=== PATIENT | female | born 1980 | race Caucasian/White ===

== ENCOUNTER 2018-06-07 06:24 | Day surgery (SDC) | payer SELFPAY ==
[2018-06-07] MEDS ORDERED: GENTAMICIN SO4 80 MG/2 ML VIAL ONE (07:08)
[2018-06-07] MEDS ORDERED: ceFAZolin SODIUM 1 GM VIAL ONE ×2 (07:08→07:13)
[2018-06-07] MEDS ORDERED: EPINEPHrine/PF 1 MG/1 ML (1:1,000) AMPULE ONE (07:09)
[2018-06-07] MEDS ORDERED: BACITRACIN 15 GM TUBE TOPICAL OINTMENT ONE (07:09)
[2018-06-07] MEDS ORDERED: LIDOCAINE HCL 1%, 10 MG/ML (20ML VIAL) ONE (07:09)
[2018-06-07] MEDS ORDERED: ROCURONIUM BROMIDE 50 MG/5 ML VIAL ONE ×4 (07:12→13:47)
[2018-06-07] MEDS ORDERED: PROPOFOL 20 ML ONE (07:12)
[2018-06-07] MEDS ORDERED: fentaNYL CITRATE 250 MCG/5 ML VIAL ONE ×2 (07:12→10:08)
[2018-06-07] MEDS ORDERED: MIDAZOLAM HCL 2 MG/2 ML SINGLE DOSE VIAL ONE (07:12)
[2018-06-07] MEDS ORDERED: DEXAMETHASONE SOD PHOSPHATE 4 MG/1 ML VIAL ONE (07:13)
[2018-06-07] MEDS ORDERED: ONDANSETRON 4 MG/2 ML VIAL ONE ×2 (07:13→16:10)
[2018-06-07] MEDS ORDERED: SUCCINYLCHOLINE CHLORIDE 200 MG/10 ML VIAL ONE (07:13)
[2018-06-07] MEDS ORDERED: ePHEDrine SULFATE 50 MG/1 ML AMPULE ONE (07:15)
[2018-06-07 07:16] VITALS: BMI 25.9
[2018-06-07] MEDS ORDERED: HEPARIN NA (PORCINE) 5,000 UNITS/ML 1ML VIAL ONE (07:17)
[2018-06-07] MEDS ORDERED: LIDOCAINE HCL 2% 100 MG/5 ML DISP.SYRIN ONE (07:22)
[2018-06-07] MEDS ORDERED: PROMETHAZINE HCL 25 MG/1 ML VIAL IVPUSH PRN (07:53)
[2018-06-07] MEDS ORDERED: oxyCODONE HCL 5 MG TABLET PO PRN ×2 (07:53→15:47)
[2018-06-07] MEDS ORDERED: BUPIVACAINE HCL/PF 2.5 MG/ML - 30 ML VIAL IJ ONE (08:31)
[2018-06-07] MEDS ORDERED: BUPIVACAINE LIPOSOME/PF (EXPAREL) 266 MG/20 ML VIAL ONE (08:32)
[2018-06-07] MEDS ORDERED: HYDROmorphone HCL/PF 1 MG/ML AMP ONE ×2 (13:47→14:45)
[2018-06-07] MEDS ORDERED: HYDROCORTISONE SOD SUCCINATE 2 ML ONE (13:47)
[2018-06-07] MEDS ORDERED: NEOSTIGMINE METHYLSULFATE 0.5 MG/ML - 10 ML MDV ONE (14:48)
[2018-06-07] MEDS ORDERED: NITROGLYCERIN 2% OINTMENT - 1GM PACKET TD ONE (14:50)
[2018-06-07] MEDS ORDERED: MORPHINE SULFATE 2 MG/ML VIAL IVPUSH PRN (15:52)
[2018-06-07] MEDS ORDERED: PROMETHAZINE HCL 25 MG/1 ML VIAL IVPB PRN (16:00)
[2018-06-07] MEDS ORDERED: LACTATED RINGERS SOLUTION 1,000 ML IV SCH (16:00)
[2018-06-07] MEDS: ONDANSETRON 4 MG/2 ML VIAL IVPB PRN ×2 (16:13→21:50)
[2018-06-07] MEDS: oxyCODONE HCL 5 MG TABLET PO PRN (18:57)
[2018-06-07] MEDS ORDERED: morphine CARPU-JECT 2 MG/1 ML DISP.SYRIN IVPUSH PRN ×2 (19:21→22:57)
[2018-06-07] MEDS: CEFAZOLIN 1 GM/D5W 1 GM/50 ML BAG IVPB SCH (20:31)
[2018-06-07] MEDS ORDERED: CEFAZOLIN 1 GM/D5W 50 ML IVPB SCH (21:00)
[2018-06-08] MEDS: CEFAZOLIN 1 GM/D5W 1 GM/50 ML BAG IVPB SCH (02:11)
[2018-06-08] MEDS: ONDANSETRON 4 MG/2 ML VIAL IVPB PRN ×2 (02:12→08:50)
[2018-06-08] MEDS: oxyCODONE HCL 5 MG TABLET PO PRN (06:15)
--- NOTE | 2018-06-08 07:31 | PN ---
Progress Note (short form) - Note Progress Note: healing well, VSS AF still with NV, but otherwise pain well controled CODY thin and functioning All tissues viable, no collections Ambulating OK for d/c
[2018-06-08] MEDS: HEPARIN NA (PORCINE) 5,000 UNITS/ML 1ML VIAL SQ SCH ×2 (07:49→07:51)
--- NOTE | 2018-06-08 08:52 | PN ---
Progress Note, Physician Chief Complaint: day 1 s/p abdominoplasty,breast augmentation - Current Medication List Current Medications: Active Medications Fentanyl (Sublimaze Injection -) 25 mcg IVPUSH [id number] PRN PRN Reason: PAIN-PACU ORDER X 4 DOSES ONLY Fentanyl (Sublimaze Injection -) 25 mcg IVPUSH [id number] PRN PRN Reason: PAIN-PACU ORDER X 4 DOSES ONLY Last Admin: 06/07/18 16:12 Dose: 25 mcg Heparin Sodium (Porcine) (Heparin -) 5,000 unit SQ BID ZOË Last Admin: 06/08/18 07:51 Dose: 5,000 unit Lactated Ringer's (Lactated Ringers Solution) 1,000 mls @ 75 mls/hr IV ASDIR ZOË Last Admin: 06/07/18 17:00 Dose: 75 mls/hr Cefazolin Sodium (Ancef 1 Gm Premixed Ivpb -) 1 gram in 50 mls @ 100 mls/hr IVPB Q6H-IV ZOË Last Admin: 06/08/18 08:29 Dose: 100 mls/hr Morphine Sulfate (Morphine Injection -) 2 mg IVPUSH Q4H PRN PRN Reason: PAIN 4-6 Last Admin: 06/08/18 00:10 Dose: 2 mg Ondansetron HCl (Zofran Injection) 4 mg IVPB Q4H PRN PRN Reason: NAUSEA Last Admin: 06/08/18 02:12 Dose: 4 mg Oxycodone HCl (Roxicodone -) 5 mg PO Q4H PRN PRN Reason: PAIN LEVEL 1-3 Oxycodone HCl (Roxicodone -) 10 mg PO Q4H PRN PRN Reason: PAIN LEVEL 7-10 Last Admin: 06/08/18 06:15 Dose: 10 mg Promethazine HCl (Phenergan Injection -) 12.5 mg IVPB Q6H PRN PRN Reason: NAUSEA-FOR RESCUE AFTER 15 MIN - Objective Vital Signs: Vital Signs Temperature 98.6 F 06/08/18 06:53 Pulse Rate 84 06/08/18 06:53 Respiratory Rate 18 06/08/18 07:56 Blood Pressure 113/57 L 06/08/18 06:53 O2 Sat by Pulse Oximetry (%) 100 06/08/18 07:56 Assessment/Plan Pt has c/o pain from surgery. Will add one time dose of ofirmev for now; she also mentioned nausea, for which she is to receive ondansetron.
[2018-06-08] MEDS ORDERED: CEFAZOLIN 1 GM/D5W 1 GRAM/50 ML BAG IVPB SCH (09:00)
[2018-06-08] MEDS ORDERED: ACETAMINOPHEN 1000 MG/100 ML VIAL (NON FORMULARY) IVPB ONE (09:20)
--- NOTE | 2018-06-08 10:33 | OP ---
DATE OF OPERATION: 06/07/2018 TITLE OF PROCEDURE: 1. Abdominoplasty with abdominal and flank liposuction. 2. Bilateral breast augmentation with mastopexy. ATTENDING SURGEON: Denton Dennis MD ANESTHESIA: General endotracheal anesthesia. DESCRIPTION OF PROCEDURE: The patient was seen in the holding area preoperatively, where all risks, benefits and alternatives to the procedure were discussed. The patient is marked while awake and aware of all incisions and resulting scars. The nipples are sited at 21 cm from the sternal notch bilaterally. A circumareolar mastopexy is planned. The patient is agreeable to any modifications as needed intraoperatively. The patient has chosen a saline implant. This was reviewed with the patient. She is given 5000 units of subcutaneous heparin preoperatively. She was given 1 g of Ancef preoperatively. Sequential compression stockings and MARIO hose were applied preoperatively. She was brought to the operating room and placed in the supine position. Position was carefully checked by surgical and anesthesia teams. The patient is protected with all appropriate padding. Extremities are secured. The Gomez catheter was placed before the operation and removed at the end of the operation. She was then prepped and draped in the standard surgical fashion. A time-out was called. Patient, procedure, side and sites were verified. Attention is first directed toward the right breast, where an inframammary incision is made and dissection carried down to the level of the pectoralis major muscle. A subpectoral pocket is then developed. Hemostasis was meticulously achieved. When the pocket is fully created, attention was then directed toward the contralateral side, where a mirror image procedure was performed. Once both pockets are deemed to be of symmetric size and position, the implants are brought onto the field. New gloves are placed. The implant is rinsed with triple antibiotic solution. Standard triple antibiotic solution is used. They are evacuated of all air, placed into the pockets using the 1-touch technique, and they are, using a closed filling system with an anterior valve, inflated to 360 mL of saline bilaterally. The patient was brought to a seated upright position. This is deemed to be an appropriate size. This represents a 10% overfill of the implant. It is an Allergan NatSpreadShoute style 68 MP-330 implant. The positions are carefully assessed and are symmetric. The fill valves are removed and the caps are placed onto the anterior valves. At this point closure was performed of the deep fascia with a series of interrupted 3-0 Monocryl suture. A series of interrupted buried deep dermal 3-0 Monocryl suture was used, followed by running subcuticular 3-0 Monocryl suture. The patient was brought again to a seated upright position, where the position of the nipple areolas is assessed. It is determined that mastopexy is in fact required bilaterally and the bilateral markings are deemed appropriate. The nipple areola is traced at 40 mm in diameter. The skin and areola in between the circumferential pattern and the areola is then de-epithelialized. A closure was then performed, which effectively corrects the skin envelope, with first a series of interrupted buried deep dermal 3-0 Monocryl suture, followed by a running 3-0 PDS suture, which is able to be adjusted for the appropriate tension and areolar size, followed by a final layer of running skin layer 5-0 fast-absorbing plain gut. This was repeated bilaterally in mirror image fashion. With the patient in a seated upright position, the position of the nipples, shape and size are symmetric. The breasts are then covered with a sterile towel and attention is then directed toward the abdomen. At the level of the abdomen, an incision was made in the infrapannicular crease. Dissection was carried down to the level of the abdominal wall fascia. Dissection was then carried along the abdominal wall fascia to the level of the umbilicus. Perforating blood vessels are suture ligated or cautery ligated as appropriate. At the level of the umbilicus, the umbilicus is circumcised, developed on a fibrofatty stalk to the level of the abdominal wall fascia. Dissection was then carried cephalad to the xiphoid process in the midline and the costal margins bilaterally. After irrigation and hemostasis, a midline plication is performed, first with a series of interrupted buried [id number] No. 1 Prolene suture, followed by a second layer of a running locking No. 1 Prolene suture. This is performed separately both cephalad and caudal to the umbilicus. A smooth, even, uniform contour and tension are achieved on the abdominal wall. The patient then brought to a flexed position at 30 degrees, is assessed for skin resection. Skin resection is performed with hemostasis. Judicious trimming of the periumbilical fat is performed with scissors. Hemostasis once again achieved. The umbilicus is sited. A Star Trek pattern incision is made on the abdominoplasty flap as well as on the umbilicus to accommodate the umbilicus. The umbilicus is translocated. It is pexied to the abdominal wall fascia for an indentation on the right and left sides of the stalk with a 3-0 Vicryl suture. The umbilicus is then inset with a series of interrupted buried deep dermal 3-0 Monocryl sutures, followed by a combination of running and interrupted 5-0 nylon suture. It is pink and viable. The size 10 flat CODY drain is brought out through each of the right and left sides of the incision, and secured with 2-0 silk drain sutures. At this point the abdominoplasty midepigastric portion of the flap as well as bilateral flanks are infiltrated with wetting solution. Standard wetting solution is used with 20 mL of lidocaine plain, 1 ampule of epinephrine and 1 L of normal saline. A total of 600 mL of this wetting solution is infiltrated while the closure is continued. Closure is continued with a series of interrupted Quique's layer, superficial fascial system 2-0 Vicryl suture, followed by a series of interrupted buried deep dermal 3-0 Monocryl suture. Final to the final layer of closure, liposuction was performed with a 4-mm cannula. Standard liposuction is used, without power assistance. The lipoaspirate is 150 mL from the midepigastrium and a total of 175 mL from each of the flanks, employing a smooth even contour. There is good pink capillary refill to the distal portion of the abdominoplasty flap. Final closure was performed with a 3-0 V-Loc 90-day suture within the mid dermis. At this point the nipples are reassessed. They are pink and viable, without any evidence of ischemia. The drains were placed to bulb suction. Dressings were applied with bacitracin and Xeroform to the nipples, Steri-Strips to the abdominoplasty scar, Xeroform to the umbilicus, ABD gauze, an abdominal binder and a surgical bra are applied. The patient is transferred to Recovery in a flexed position, having tolerated the procedure well. The Gomez catheter is removed at the end of the procedure. It should be noted that for 1 hour of the closure portion of the procedure, certified first assistant Seymour Sifuentes is used. Harman ESPINAL/[id number]
[2018-06-08] MEDS ORDERED: ACETAMINOPHEN 325 MG TABLET (FP) PO ONE ×2 (14:15→14:30)
[2018-06-08 14:46] VITALS: BP 111/74; PULSE 88; TEMP 98.4
== END 2018-06-08 14:30 | disposition home or self-care (01) ==
LOC: FASU 06:24 → FM/S 16:44 → FASU 06-08 14:30
PROVIDERS: ATTEND Plastic Surgery
PROC: 0J080ZZ Alteration of Abdomen Subcutaneous Tissue and Fascia, Open Approach (ICD-10-PCS; 2018-06-07)
PROC: 0J083ZZ Alteration of Abdomen Subcutaneous Tissue and Fascia, Percutaneous Approach (ICD-10-PCS; 2018-06-07)
PROC: 0HRV0JZ Replacement of Bilateral Breast with Synthetic Substitute, Open Approach (ICD-10-PCS; principal; 2018-06-07 09:04)
PROC: 0H0V0JZ Alteration of Bilateral Breast with Synthetic Substitute, Open Approach (ICD-10-PCS; 2018-06-07 09:04)
DX: Z41.1 Encounter for cosmetic surgery (principal)
CPT/HCPCS: 84703; 94760; J0131; J1644